=== PATIENT | male | born 1980 | race Caucasian/White ===

== ENCOUNTER → 2017-11-20 | Emergency (ER) | payer OTHER ==
[2017-11-20 00:57] VITALS: BMI 31.8
[2017-11-20 01:02] VITALS: RESP 18
--- NOTE | 2017-11-20 01:48 | ED PDOC ---
Arrival/HPI - General Chief Complaint: Chest Pain Time Seen by Provider: 11/20/17 01:12 Historian: Patient - History of Present Illness Narrative History of Present Illness (Text): 11/20/17 01:38 37 year old male, with no significant past medical history, presents to the emergency department complaining of midsternal chest discomfort for the past 2 days.States that it appears somewhat positional. He is an occasional hookah smoker. Patient denies any history of exertional chest pain or CRYSTAL. Patient denies any fever, chills, shortness of breath, nausea, vomiting, diarrhea, urinary symptoms, back pain, neck pain, leg,pain, headache, dizziness, or any other complaints. Time/Duration: Other (2 days) Symptom Onset: Gradual Symptom Course: Unchanged Activities at Onset: Light Context: Home Past Medical History - Provider Review Nursing Documentation Reviewed: Yes - Psychiatric Hx Substance Use: No - Surgical History Hx Tonsillectomy: Yes Family/Social History - Physician Review Nursing Documentation Reviewed: Yes Family/Social History: No Known Family HX. denies: CAD/[place] Smoking Status: hookah Hx Alcohol Use: No Hx Substance Use: No Allergies/Home Meds Allergies/Adverse Reactions: Allergies No Known Allergies Allergy (Verified 11/20/17 00:55) Home Medications: Home Meds Medication Instructions Recorded Confirmed No Known Home Med 11/20/17 11/20/17 Review of Systems - Physician Review All systems were reviewed & negative as marked: Yes - Review of Systems Constitutional: absent: Fevers, Other (Chills) Respiratory: absent: SOB Cardiovascular: Chest Pain Gastrointestinal: absent: Diarrhea, Nausea Genitourinary Male: absent: Dysuria, Frequency, Hematuria Musculoskeletal: absent: Back Pain, Neck Pain, Other (leg pain) Neurological: absent: Headache, Dizziness Physical Exam Vital Signs Reviewed: Yes Vital Signs Temp Pulse Resp BP Pulse Ox 11/20/17 02:24 98.6 F 76 18 135/76 95 11/20/17 00:59 98.8 F 78 18 140/100 H 98 Temperature: Afebrile Blood Pressure: Normal Pulse: Regular Respiratory Rate: Normal Appearance: Positive for: Well-Appearing, Non-Toxic, Comfortable Pain Distress: None Mental Status: Positive for: Alert and Oriented X 3 - Systems Exam Head: Present: Atraumatic, Normocephalic Pupils: Present: PERRL Extroacular Muscles: Present: EOMI Conjunctiva: Present: Normal Mouth: Present: Moist Mucous Membranes Neck: Present: Normal Range of Motion Respiratory/Chest: Present: Clear to Auscultation, Good Air Exchange, Tender to Palpation (to the anterior chest wall). No: Respiratory Distress, Accessory Muscle Use Cardiovascular: Present: Regular Rate and Rhythm, Normal S1, S2. No: Murmurs Abdomen: Present: Normal Bowel Sounds. No: Tenderness, Distention, Peritoneal Signs Back: Present: Normal Inspection Upper Extremity: Present: Normal Inspection. No: Cyanosis, Edema Lower Extremity: Present: Normal Inspection. No: Edema Neurological: Present: GCS=15, CN II-XII Intact, Speech Normal Skin: Present: Warm, Dry, Normal Color. No: Rashes Psychiatric: Present: Alert, Oriented x 3, Normal Insight, Normal Concentration Medical Decision Making ED Course and Treatment: 11/20/17 01:12 Impression: 37 year old male, presents complaining of midsternal chest discomfort for the past two days. PE shows palpable tenderness to the anterior chest wall. Plan: -- EKG -- Labs -- Chest X-ray -- Toradol -- Reassess and disposition Prior Visits: Progress Notes: EKG shows NSR at 76 BPM with incomplete RBBB. No acute changes. Interpreted by me. 11/20/17 02:41 CXR Impression: As read by me, no acute process. 11/20/17 04:11 Leaving Against Medical Advice (AMA): The patient is choosing to leave against medical advice. I have personally explained to the patient that choosing to do so may result in permanent bodily harm or . I have discussed at great length that without further evaluation and monitoring there may be unforeseen circumstances and/or deterioration causing permanent bodily harm or as a result of their choice. The patient is alert, oriented, and shows the mental capacity to make clear decisions regarding the patients health care at this time. The patient continues to wish to leave against medical advice. In light of the patients decision to leave against medical advice, follow-up has been arranged and the patient is aware of the importance to following up as instructed. The patient has been advised that they should return to the emergency room immediately if they change their mind at any time, or if their condition begins to change or worsen in any way. - Lab Interpretations Lab Results: 11/20/17 01:51 11/20/17 01:51 Lab Results 11/20/17 01:51: D-Dimer, Quantitative < 200 11/20/17 01:51: WBC 8.7, RBC 4.55, Hgb 14.5, Hct 40.9 L, MCV 89.9, MCH 31.9, MCHC 35.5, RDW 13.6, Plt Count 192, MPV 12.2 H 11/20/17 01:51: Sodium 140, Potassium 3.8, Chloride 104, Carbon Dioxide 26, Anion Gap 14, BUN 12, Creatinine 0.7 L, Est GFR ( Amer) > 60, Est GFR ( Non-Af Amer) > 60, Random Glucose 139 H, Calcium 9.7, Total Bilirubin 0.9, AST 56, ALT 96 H, Alkaline Phosphatase 57, Lactate Dehydrogenase 629, Total Creatine Kinase 218, Troponin I < 0.01, Total Protein 7.5, Albumin 4.0, Globulin 3.5, Albumin/Globulin Ratio 1.1 11/20/17 01:51: PT 12.2, INR 1.07, APTT 36.2 I have reviewed the lab results: Yes - RAD Interpretation Radiology Orders: 11/20/17 01:17 CHEST PORTABLE [RAD] Stat - EKG Interpretation Interpreted by ED Physician: Yes Type: 12 lead EKG - Medication Orders Current Medication Orders: Discontinued Medications Aspirin (Aspirin) 325 mg PO ONCE STA Stop: 11/20/17 03:26 Ketorolac Tromethamine (Toradol) 30 mg IVP ONCE ONE Stop: 11/20/17 01:19 Last Admin: 11/20/17 01:49 Dose: 30 mg MAR Pain Assessment Document 11/20/17 01:49 OCS (Rec: 11/20/17 01:50 OCS [id number]) Pain Reassessment Is this a pain reassessment? Yes Sleep Is patient sleeping during reassessment? No Presence of Pain Presence of Pain Yes Pain Scale Used Pain Scale Used Numeric Location Pain Location Body Site Chest Description Description Constant Intensity of Pain at present 8 Pain Behavior Irritability Rubbing Site Aggravating Factors ADL's Changing Position IVP Administration Document 11/20/17 01:49 OCS (Rec: 11/20/17 01:50 OCS [id number]) Charges for Administration # of IVP Administrations 1 - Scribe Statement The provider has reviewed the documentation as recorded by the Augustineibe Dori Barrett Provider Scribe Attestation: All medical record entries made by the Scribe were at my direction and personally dictated by me. I have reviewed the chart and agree that the record accurately reflects my personal performance of the history, physical exam, medical decision making, and the department course for this patient. I have also personally directed, reviewed, and agree with the discharge instructions and disposition. Disposition/Present on Arrival - Present on Arrival Any Indicators Present on Arrival: No History of DVT/PE: No History of Uncontrolled Diabetes: No Urinary Catheter: No History of Decub. Ulcer: No History Surgical Site Infection Following: None - Disposition Have Diagnosis and Disposition been Completed?: Yes Diagnosis: Chest pain Disposition: AGAINST MEDICAL ADVICE Disposition Time: 04:05 Patient Problems: Current Active Problems Problem Status Onset Chest pain Acute Condition: STABLE Discharge Instructions (ExitCare): Chest Pain (ED) Additional Instructions: Follow up with the helpdesk specialist this week Referrals: Lou Alejo MD [Staff Provider] - Follow up with primary Forms: e27 ([employer])
[2017-11-20 02:20] LABS: INR 1.07 (0.93-1.08); PARTIAL THROMBOPLASTIN TIME 36.2 Seconds (25.1-36.5); PROTHROMBIN TIME 12.2 SECONDS (9.4-12.5)
[2017-11-20 02:22] LABS: ALB/GLOB RATIO 1.1 (1.1-1.8); ALT/SGPT 96 U/L (7-56); AST/SGOT 56 U/L (17-59); BLOOD UREA NITROGEN 12 mg/dL (7-21); CALCIUM 9.7 mg/dL (8.4-10.5); GFR AFRICAN-AMERICAN > 60; GFR NON-AFRICAN AMERICAN > 60; HEMOGLOBIN 14.5 g/dL (14.0-18.0); MEAN CELL VOLUME 89.9 fl (80.0-105.0); MEAN CORPUSCULAR HEMOGLOBIN 31.9 pg (25.0-35.0); MEAN CORPUSCULAR HGB CONC 35.5 g/dl (31.0-37.0); MEAN PLATELET VOLUME 12.2 fl (7.0-11.0); RBC 4.55 10^6/uL (3.5-6.1); RED CELL DISTRIBUTION WIDTH 13.6 % (11.5-14.5); WHITE BLOOD COUNT 8.7 10^3/ul (4.5-11.0)
[2017-11-20 02:35] LABS: TROPONIN I < 0.01 ng/mL
[2017-11-20 03:26] VITALS: BP 135/76; PULSE 76; TEMP 98.6; O2SAT 95
--- NOTE | 2017-11-20 08:12 | RAD ---
HISTORY: pain COMPARISON: No prior. FINDINGS: LUNGS: No active pulmonary disease. PLEURA: No significant pleural effusion identified, no pneumothorax apparent. CARDIOVASCULAR: Normal. OSSEOUS STRUCTURES: No significant abnormalities. VISUALIZED UPPER ABDOMEN: Normal. OTHER FINDINGS: None. IMPRESSION: No active disease.
--- NOTE | 2017-11-20 10:25 | CARD ---
APPROVED REPORT EKG Measurement Heart [id number] VT [id number] <Conclusion> Normal sinus rhythm Incomplete right bundle branch block Borderline ECG
== END | disposition left against medical advice (07) ==
LOC: ED 00:43 → MERGE 00:43
DX: R07.9 Chest pain, unspecified (principal)
CPT/HCPCS: 71045; 80053; 82550; 83615; 84484; 85027; 85378; 85610; 85730; 93005; 96374; 99283; J1885